=== PATIENT | female | born 2005 | race American Indian/Alaskan Native ===

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

== ENCOUNTER 2023-02-15 14:33 | Emergency (ER) | payer OTHER ==
[~2023-02-15] VITALS: Ht 182.9 cm; Wt 135.4 kg
[~2023-02-15 14:33] MED LIST changes: +IBUPROFEN600 MG PO
--- OUTSIDE RECORDS SUMMARY | 2023-02-15 14:38 | XMS ---
PreManage Notification: DARIUS FRANCOIS Security Back Closer Events No recent Security Events currently on file CRITERIA MET - [facility] PROVIDERS There are no care providers on record at this time. [facility] has no Care Guidelines for this patient. [place] VISIT COUNT (12 MO.) [address] [address] [facility] TOTAL 2 NOTE: Visits indicate total known visits. ED/C VISIT TRACKING (12 MO.) 02/15/2023 14:36 [facility] TYPE: Emergency COMPLAINT: - [facility] DIAGNOSES: - Encounter for change or removal of surgical wound dressing - "Wound clean/change" - Dressing Change INPATIENT VISIT TRACKING (12 MO.) 02/17/2022 17:18 [facility] TYPE: Medical Surgical COMPLAINT: - ABDOMINAL WALL ABSCESS DIAGNOSES: - Contact with and (suspected) exposure to COVID-19 - Contact with and (suspected) exposure to COVID-19 - Cutaneous abscess of abdominal wall - Infection of obstetric surgical wound, superficial incisional site - Infection of obstetric surgical wound, superficial incisional site - Morbid (severe) obesity due to excess calories - Morbid (severe) obesity due to excess calories - Obesity complicating the puerperium - Obesity complicating the puerperium [email or web address]
[2023-02-15 17:09] VITALS: BP 137/74
== END 2023-02-15 17:10 | disposition home or self-care (01) ==
LOC: ED 14:33
DX: F32.A Depression, unspecified (principal)
CPT/HCPCS: 36415; 80053; 81003; 84443; 84703; 85025; 85060; 99285; G0480

== ENCOUNTER 2023-06-13 23:25 | Emergency (ER) | payer OTHER ==
[~2023-06-13] VITALS: Ht 175.3 cm; Wt 128.8 kg
--- OUTSIDE RECORDS SUMMARY | ~2023-06-13 | XMS | Continuity of Care Document ---
Demographics + + + | Address | [address] [facility] [address] | | | [place] [address] | + + + | Preferred Language | Unknown | + + + | Marital Status | Polygamous | + + + | Scientology Affiliation | Unknown | + + + | Race | or | + + + | Ethnic Group | Not or | + + + Author + + + | Author | [facility] | + + + | Organization | [facility] | + + + | Address | [address] [facility] | | | [place] [address] | + + + | Phone | | + + + Care Team Providers + + + + | Care Blast Furnace Operator Name | Role | Phone | + + + + Unavailable | Unavailable | + + + + Unavailable | Unavailable | + + + + Allergies No information. Encounters No information. Functional Status No information. Immunizations No information. Medications No information. Problems + + + + | date | description | facility | + + + + | 2017-10-28 00:00 | Sprain of ankle | [facility] | + + + + | 2022-04-01 14:29 | ENCOUNTER FOR CHANGE OR | [facility] | | | REMOVAL OF SURGICAL WOUND | | | | DRESSING | | + + + + | 2023-02-15 00:00 | Suicidal ideation | [facility] | + + + + Procedures No information. Results/Labs +--------+--------+ +---------+--------+---------+ | test | date | facility | value | unit | notes | +--------+--------+ +---------+--------+---------+ + + | Result panel 1 | + + + + + +-------+ + + | | 2023-02-15 | [facility] | 9.0 | (missing) | (missing) | | (unavailable | 15:41:07 [facility] | | | | + + + +-------+ + + + + | Result panel 2 | + + + + + +-------+ + + | | 2023-02-15 | [facility] | 308 | (missing) | (missing) | | (unavailable | 15:41:07 [facility] | | | | + + + +-------+ + + + + | Result panel 3 | + + + + + +--------+ + + | | 2023-02-15 | [facility] | 58.2 | (missing) | (missing) | | (unavailable | 15:41:07 [facility] | | | | + + + +--------+ + + + + | Result panel 4 | + + + + + +--------+ + + | | 2023-02-15 | [facility] | 31.7 | (missing) | (missing) | | (unavailable | [facility]41:07 [facility] | | | | + + + +--------+ + + + + | Result panel 5 | + + + + + +-------+ + + | | 2023-02-15 | [facility] | 5.9 | (missing) | (missing) | | (unavailable | [facility]41:07 [facility] | | | | + + + +-------+ + + + + | Result panel 6 | + + + + + +-------+ + + | | 2023-02-15 | [facility] | 1.9 | (missing) | (missing) | | (unavailable | [facility]41:07 [facility] | | | | + + + +-------+ + + + + | Result panel 7 | + + + + + +-------+ + + | | 2023-02-15 | [facility] | 2.3 | (missing) | (missing) | | (unavailable | [facility]41:07 [facility] | | | | + + + +-------+ + + + + | Result panel 8 | + + + + + + + + + | | 2023-02-15 | [facility] | YELLOW | (missing) | (missing) | | (unavailable | [facility]41:07 [facility] | | | | + + + + + + + + + | Result panel 9 | + + + + + +---------+ + + | | 2023-02-15 | [facility] | CLEAR | (missing) | (missing) | | (unavailable | [facility]41:07 [facility] | | | | + + + +---------+ + + + + | Result panel 10 | + + + + + + + + + | | 2023-02-15 | [facility] | NEGATIVE | (missing) | (missing) | | (unavailable | [facility]:41:07 [facility] | | | | + + + + + + + + + | Result panel 11 | + + + + + + + + + | | 2023-02-15 | [facility] | NEGATIVE | (missing) | (missing) | | (unavailable | [facility]41:07 [facility] | | | | + + + + + + + + + | Result panel 12 | + + + + + + + + + | | 2023-02-15 | [facility] | see | (missing) | (missing) | | (unavailable | 15:41:07 | [facility] | comments | | | | ) | | Hospital | | | | + + + + + + + + + | Result panel 13 | + + + + + + + + + | | 2023-02-15 | [facility] | NEGATIVE | (missing) | (missing) | | (unavailable | 15:41:07 [facility] | | | | + + + + + + + + + | Result panel 14 | + + + + + + + + + | | 2023-02-15 | [facility] | >=1.030 | (missing) | (missing) | | (unavailable | [facility]41:07 [facility] | | | | + + + + + + + + + | Result panel 15 | + + + + + + + + + | | 2023-02-15 | [facility] | NEGATIVE | (missing) | (missing) | | (unavailable | [facility]41:07 [facility] | | | | + + + + + + + + + | Result panel 16 | + + + + + +-------+ + + | | 2023-02-15 | [facility] | 5.5 | (missing) | (missing) | | (unavailable | [facility]41:07 [facility] | | | | + + + +-------+ + + + + | Result panel 17 | + + + + + + + + + | | 2023-02-15 | [facility] | NEGATIVE | (missing) | (missing) | | (unavailable | [facility]41:07 [facility] | | | | + + + + + + + + + | Result panel 18 | + + + + + + + + + | | 2023-02-15 | [facility] | NORMAL | (missing) | (missing) | | (unavailable | [facility]41:07 [facility] | | | | + + + + + + + + + | Result panel 19 | + + + + + + + + + | | 2023-02-15 | [facility] | NEGATIVE | (missing) | (missing) | | (unavailable | [facility]41:07 [facility] | | | | + + + + + + + + + | Result panel 20 | + + + + + + + + + | | 2023-02-15 | [facility] | NEGATIVE | (missing) | (missing) | | (unavailable | [facility]41:07 [facility] | | | | + + + + + + + + + | Result panel 21 | + + + + + +-------+---------+ + | | 2023-02-15 | [facility] | 115 | mg/dL | (missing) | | (unavailable | [facility]41:07 [facility] | | | | + + + +-------+---------+ + + + | Result panel 22 | + + + + + +------+---------+ + | | 2023-02-15 | [facility] | 12 | mg/dL | (missing) | | (unavailable | [facility]41:07 [facility] | | | | + + + +------+---------+ + + + | Result panel 23 | + + + + + +--------+ + + | | 2023-02-15 | [facility] | 6.24 | (missing) | (missing) | | (unavailable | [facility]41:07 [facility] | | | | + + + +--------+ + + + + | Result panel 24 | + + + + + +--------+---------+ + | | 2023-02-15 | [facility] | 0.81 | mg/dL | (missing) | | (unavailable | [facility]41:07 [facility] | | | | + + + +--------+---------+ + + + | Result panel 25 | + + + + + +-------+ + + | | 2023-02-15 | [facility] | 107 | (missing) | (missing) | | (unavailable | [facility]41:07 [facility] | | | | + + + +-------+ + + + + | Result panel 26 | + + + + + +---------+ + + | | 2023-02-15 | [facility] | 14.81 | (missing) | (missing) | | (unavailable | [facility]41:07 [facility] | | | | + + + +---------+ + + + + | Result panel 27 | + + + + + +-------+ + + | | 2023-02-15 | [facility] | 140 | (missing) | (missing) | | (unavailable | [facility]41:07 [facility] | | | | + + + +-------+ + + + + | Result panel 28 | + + + + + +-------+ + + | | 2023-02-15 | [facility] | 3.6 | (missing) | (missing) | | (unavailable | [facility]41:07 [facility] | | | | + + + +-------+ + + + + | Result panel 29 | + + + + + +-------+ + + | | 2023-02-15 | [facility] | 105 | (missing) | (missing) | | (unavailable | [facility]41:07 [facility] | | | | + + + +-------+ + + + + | Result panel 30 | + + + + + +------+ + + | | 2023-02-15 | [facility] | 25 | (missing) | (missing) | | (unavailable | [facility]41:07 [facility] | | | | + + + +------+ + + + + | Result panel 31 | + + + + + +--------+ + + | | 2023-02-15 | [facility] | 13.6 | (missing) | (missing) | | (unavailable | [facility]41:07 [facility] | | | | + + + +--------+ + + + + | Result panel 32 | + + + + + +-------+---------+ + | | 2023-02-15 | [facility] | 8.4 | mg/dL | (missing) | | (unavailable | [facility]41:07 [facility] | | | | + + + +-------+---------+ + + + | Result panel 33 | + + + + + +-------+ + + | | 2023-02-15 | [facility] | 7.9 | (missing) | (missing) | | (unavailable | [facility]41:07 [facility] | | | | + + + +-------+ + + + + | Result panel 34 | + + + + + +--------+ + + | | 2023-02-15 | [facility] | 11.0 | (missing) | (missing) | | (unavailable | [facility]41:07 [facility] | | | | + + + +--------+ + + + + | Result panel 35 | + + + + + +-------+ + + | | 2023-02-15 | [facility] | 3.6 | (missing) | (missing) | | (unavailable | [facility]41:07 [facility] | | | | + + + +-------+ + + + + | Result panel 36 | + + + + + +-------+ + + | | 2023-02-15 | [facility] | 4.3 | (missing) | (missing) | | (unavailable | [facility]:07 [facility] | | | | + + + +-------+ + + + + | Result panel 37 | + + + + + +--------+ + + | | 2023-02-15 | [facility] | 0.84 | (missing) | (missing) | | (unavailable | [facility]41:07 [facility] | | | | + + + +--------+ + + + + | Result panel 38 | + + + + + +-------+ + + | | 2023-02-15 | [facility] | 0.3 | (missing) | (missing) | | (unavailable | [facility]41:07 [facility] | | | | + + + +-------+ + + + + | Result panel 39 | + + + + + +------+ + + | | 2023-02-15 | [facility] | 21 | (missing) | (missing) | | (unavailable | [facility]41:07 [facility] | | | | + + + +------+ + + + + | Result panel 40 | + + + + + +------+ + + | | 2023-02-15 | [facility] | 28 | (missing) | (missing) | | (unavailable | [facility]41:07 [facility] | | | | + + + +------+ + + + + | Result panel 41 | + + + + + +-------+ + + | | 2023-02-15 | [facility] | 132 | (missing) | (missing) | | (unavailable | [facility]41:07 [facility] | | | | + + + +-------+ + + + + | Result panel 42 | + + + + + +---------+ + + | | 2023-02-15 | [facility] | 1.921 | (missing) | (missing) | | (unavailable | [facility]41:07 [facility] | | | | + + + +---------+ + + + + | Result panel 43 | + + + + + + + + + | | 2023-02-15 | [facility] | NEGATIVE | (missing) | (missing) | | (unavailable | [facility]41:07 [facility] | | | | + + + + + + + + + | Result panel 44 | + + + + + +-----+ + + | | 2023-02-15 | [facility] | 0 | (missing) | (missing) | | (unavailable | [facility]41:07 [facility] | | | | + + + +-----+ + + + + | Result panel 45 | + + + + + +--------+ + + | | 2023-02-15 | [facility] | 36.1 | (missing) | (missing) | | (unavailable | [facility]41:07 [facility] | | | | + + + +--------+ + + + + | Result panel 46 | + + + + + +------+ + + | | 2023-02-15 | [facility] | // | (missing) | (missing) | | (unavailable | [facility]41:07 [facility] | | | | + + + +------+ + + + + | Result panel 47 | + + + + + +-------+---------+ + | | 2023-02-15 | [facility] | 0.5 | mg/dL | (missing) | | (unavailable | [facility]41:07 [facility] | | | | + + + +-------+---------+ + + + | Result panel 48 | + + + + + +------+ + + | | 2023-02-15 | [facility] | // | (missing) | (missing) | | (unavailable | [facility]41:07 [facility] | | | | + + + +------+ + + + + | Result panel 49 | + + + + + +------+ + + | | 2023-02-15 | [facility] | <3 | (missing) | (missing) | | (unavailable | [facility]41:07 [facility] | | | | + + + +------+ + + + + | Result panel 50 | + + + + + + + + + | | 2023-02-15 | [facility] | NEGATIVE | (missing) | (missing) | | (unavailable | [facility]41:07 [facility] | | | | + + + + + + + + + | Result panel 51 | + + + + + + + + + | | 2023-02-15 | [facility] | NEGATIVE | (missing) | (missing) | | (unavailable | [facility]41:07 [facility] | | | | + + + + + + + + + | Result panel 52 | + + + + + + + + + | | 2023-02-15 | [facility] | NEGATIVE | (missing) | (missing) | | (unavailable | [facility]41:07 [facility] | | | | + + + + + + + + + | Result panel 53 | + + + + + + + + + | | 2023-02-15 | [facility] | NEGATIVE | (missing) | (missing) | | (unavailable | [facility]41:07 [facility] | | | | + + + + + + + + + | Result panel 54 | + + + + + + + + + | | 2023-02-15 | [facility] | NEGATIVE | (missing) | (missing) | | (unavailable | [facility]41:07 [facility] | | | | + + + + + + + + + | Result panel 55 | + + + + + + + + + | | 2023-02-15 | [facility] | NEGATIVE | (missing) | (missing) | | (unavailable | [facility]41:07 [facility] | | | | + + + + + + + + + | Result panel 56 | + + + + + +--------+ + + | | 2023-02-15 | [facility] | 57.9 | (missing) | (missing) | | (unavailable | [facility]41:07 [facility] | | | | + + + +--------+ + + + + | Result panel 57 | + + + + + + + + + | | 2023-02-15 | [facility] | NEGATIVE | (missing) | (missing) | | (unavailable | [facility]41:07 [facility] | | | | + + + + + + + + + | Result panel 58 | + + + + + + + + + | | 2023-02-15 | [facility] | NEGATIVE | (missing) | (missing) | | (unavailable | [facility]41:07 [facility] | | | | + + + + + + + + + | Result panel 59 | + + + + + + + + + | | 2023-02-15 | [facility] | NEGATIVE | (missing) | (missing) | | (unavailable | [facility]41:07 [facility] | | | | + + + + + + + + + | Result panel 60 | + + + + + + + + + | | 2023-02-15 | [facility] | NEGATIVE | (missing) | (missing) | | (unavailable | [facility]41:07 [facility] | | | | + + + + + + + + + | Result panel 61 | + + + + + + + + + | | 2023-02-15 | [facility] | NEGATIVE | (missing) | (missing) | | (unavailable | [facility]41:07 [facility] | | | | + + + + + + + + + | Result panel 62 | + + + + + + + + + | | 2023-02-15 | [facility] | NEGATIVE | (missing) | (missing) | | (unavailable | [facility]41:07 [facility] | | | | + + + + + + + + + | Result panel 63 | + + + + + + + + + | | 2023-02-15 | [facility] | NEGATIVE | (missing) | (missing) | | (unavailable | [facility]41:07 [facility] | | | | + + + + + + + + + | Result panel 64 | + + + + + +--------+ + + | | 2023-02-15 | [facility] | 17.7 | (missing) | (missing) | | (unavailable | [facility]:07 [facility] | | | | + + + +--------+ + + + + | Result panel 65 | + + + + + +--------+ + + | | 2023-02-15 | [facility] | 30.6 | (missing) | (missing) | | (unavailable | [facility]41:07 [facility] | | | | + + + +--------+ + + + + | Result panel 66 | + + + + + +--------+ + + | | 2023-02-15 | [facility] | 16.6 | (missing) | (missing) | | (unavailable | [facility]41:07 [facility] | | | | + + + +--------+ + + Social History No information. Vital Signs + + + +---------+ | date | measurement | value | units | + + + +---------+ | 2023-02-15 00:00 | BMI | 40.5 | kg/m2 | + + + +---------+ | 2023-02-15 00:00 | BMI | 50 | % | + + + +---------+ | 2023-02-15 00:00 | BP_diastolic | 74 | mmHg | + + + +---------+ | 2023-02-15 00:00 | BP_systolic | 137 | mmHg | + + + +---------+ | 2023-02-15 00:00 | heart_rate | 87 | /min | + + + +---------+ | 2023-02-15 00:00 | height_metric | 182.88 | cm | + + + +---------+ | 2023-02-15 00:00 | height_standard | 72 | in | + + + +---------+ | 2023-02-15 00:00 | o2_saturation | 100 | % | + + + +---------+ | 2023-02-15 00:00 | respiration_rate | 17 | /min | + + + +---------+ | 2023-02-15 00:00 | temperature_metric | 36.67 | C | | | | | | + + + +---------+ | 2023-02-15 00:00 | | 98 | F | | | temperature_standar | | | | | d | | | + + + +---------+ | 2023-02-15 00:00 | weight_metric | 135.4 | kg | + + + +---------+ | 2023-02-15 00:00 | weight_standard | 298.51 | lb | + + + +---------+"
--- OUTSIDE RECORDS SUMMARY | ~2023-06-13 | XMS | Continuity of Care Document ---
Demographics + + + | Address | [address] [facility] [address] | | | [place] [address] | + + + | Preferred Language | Unknown | + + + | Marital Status | Polygamous | + + + | Jehovah'S Witness Affiliation | Unknown | + + + | Race | or | + + + | Ethnic Group | Not or | + + + Author + + + | Author | [facility] | + + + | Organization | [facility] | + + + | Address | [address] [facility] | | | [place] [address] | + + + | Phone | | + + + Care Team Providers + + + + | Care Drum Cleaner Name | Role | Phone | + [...] 2017-10-28 00:00 | Sprain of ankle | [facility] | + + + + | 2022-04-01 14:29 | ENCOUNTER FOR CHANGE OR | [facility] | | | REMOVAL OF SURGICAL WOUND | | | | DRESSING | | + + + + | 2023-02-15 00:00 | Suicidal ideation | [facility] | + + + + Procedures No [...]
[2023-06-14 00:16] LABS: EOSINOPHILS 1.4 % (0-6); HEMATOCRIT 33.9 % (35.0-50.0); HEMOGLOBIN 10.3 g/dL (12.0-18.0); LYMPHOCYTES 29.2 % (24-44); MCH 18.2 (27-36); MCHC 30.6 g/dl (30-36); MCV 59.4 fl (81-99); MONOCYTES 7.6 % (0-12); NEUTROPHILS 60.8 % (39-80); PLATELET COUNT 261 K/uL (140-440); RDW 16.9 (10.5-15.0)
[2023-06-14 00:46] VITALS: BP 121/59
== END 2023-06-14 00:34 | disposition home or self-care (01) ==
LOC: ED 23:25
PROVIDERS: Emergency Medicine
DX: Z33.2 Encounter for elective termination of pregnancy (principal)
CPT/HCPCS: 36415; 84702; 85025; 85060; 99284